=== PATIENT | female | born 2000 | race Caucasian/White ===

== ENCOUNTER 2019-05-23 13:55 | Emergency (ER) | payer OTHER ==
[~2019-05-23] VITALS: Ht 157.5 cm; Wt 118.8 kg
[2019-05-23 14:15] LABS: Source, Urine Clean Catch
[2019-05-23 14:33] LABS: Appearance, Urine Hazy (Clear); Bilirubin, Urine Neg (Neg); Blood, Urine 1+ (Neg); Color, Urine Yellow (P-Yellow); Glucose Qualitative, Urine Neg (Neg); Ketones, Urine 1+ (Neg); Leukocyte Esterase, Urine 1+ (Neg); Nitrite, Urine Neg (Neg); Protein, Urine 2+ (Neg); Specific Gravity, Urine 1.025 (1.003-1.022); Urobilinogen, Urine 1+ (Normal)
[2019-05-23 14:56] LABS: Red Blood Cells, Urine Not Seen /hpf (0-2); White Blood Cells, Urine 0-2 /hpf (0-5)
[2019-05-23 14:57] LABS: Bacteria Many /hpf; Squamous Epithelial Cells Many /hpf (Few)
[2019-05-23] MEDS ORDERED: Macrobid 100 M100 MG PO (15:09)
== END 2019-05-23 15:14 | disposition home or self-care (01) ==
LOC: ER 13:55
PROVIDERS: Physician Assistant
DX: O23.41 Unspecified infection of urinary tract in pregnancy, first trimester (principal); Z3A.01 Less than 8 weeks gestation of pregnancy
CPT/HCPCS: 81001; 87086; 99283

== ENCOUNTER → 2019-07-13 | Outpatient (CLI) | payer OTHER ==
[~2019-07-13] MED LIST: Macrobid 100 M100 MG PO; PRENATAL TABLE1 EAC2 PO
== END ==
LOC: LAB SHORT 14:23 → LAB UCHC 14:23
DX: O99.89 Other specified diseases and conditions complicating pregnancy, childbirth and the puerperium (principal); R87.89 Other abnormal findings in specimens from female genital organs
CPT/HCPCS: 87070; 87205

== ENCOUNTER → 2019-10-28 | Outpatient (CLI) | payer OTHER ==
[2019-10-28 19:03] LABS: Alanine Aminotransfer (ALT/SGP 19 U/L (12-78); Albumin, Blood 3.1 g/dL (3.4-5.0); Albumin/Globulin Ratio 0.8 (0.8-1.8); Alk Phos 84 U/L (50-136); Aspartate Aminotrans (AST/SGOT 16 U/L (12-37); Bilirubin, Direct <0.1 mg/dL (0.0-0.3); Bilirubin, Indirect Unable to Calculate mg/dL (0.1-0.7); Bilirubin, Total 0.4 mg/dL (0.1-1.0); Globulin, Blood 4.1 g/dL (2.2-4.0); Total Protein, Blood 7.2 g/dL (6.4-8.2)
== END ==
LOC: LAB 16:12 → LAB SHORT 16:12 → EDSTATUS 10-27 12:00 → LAB FUT 10-27 12:00
PROVIDERS: Registered Nurse Community Health
DX: Z34.83 Encounter for supervision of other normal pregnancy, third trimester (principal)
CPT/HCPCS: 80076; 82731

== ENCOUNTER → 2019-12-15 | Outpatient (CLI) | payer OTHER | LOC: LAB SHORT 08:40 → LAB 08:40 | DX: Z34.83 Encounter for supervision of other normal pregnancy, third trimester (principal) | CPT/HCPCS: 87081; 87653 ==

== ENCOUNTER 2020-01-12 11:03 | Inpatient (IN) | payer OTHER ==
[~2020-01-12] VITALS: Ht 157.5 cm; Wt 114.3 kg
[2020-01-12 12:56] LABS: BASOPHILS ABSOLUTE AUTO 0.02 K/mm3 (0.00-0.23); BASOPHILS PERCENT AUTO 0 % (0-2); EOSINOPHILS ABSOLUTE AUTO 0.04 K/mm3 (0.00-0.68); EOSINOPHILS PERCENT AUTO 0 % (0-6); Hematocrit 34.4 % (33.0-51.0); Hemoglobin 11.4 g/dL (11.5-16.0); IMMATURE GRAN ABSOLUTE AUTO 0.06 K/mm3 (0.00-0.10); IMMATURE GRAN PERCENT AUTO 1 % (0-1); LYMPHOCYTES ABSOLUTE AUTO 2.36 K/mm3 (0.84-5.20); LYMPHOCYTES PERCENT AUTO 24 % (21-46); MONOCYTES PERCENT AUTO 7 % (4-13); Mean Corpuscular HGB 28.2 pg (26.0-34.0); Mean Corpuscular HGB Conc 33.1 g/dL (31.5-36.5); Mean Corpuscular Volume 85 fL (80-100); Mean Platelet Volume 11.8 fL (9.1-12.4); NEUTROPHILS ABSOLUTE AUTO 6.56 K/mm3 (1.96-9.15); NEUTROPHILS PERCENT AUTO 67 % (41-73); Platelet Count 235 K/mm3 (150-400); RDW Coefficient Variation 13.7 % (11.7-14.2); RDW Standard Deviation 42.5 fL (35.1-46.3); Red Blood Cell Count 4.04 M/mm3 (3.80-5.20); White Blood Cell Count 9.74 K/mm3 (4.00-11.30)
[2020-01-12] MEDS ORDERED: PANT40 PO (13:06)
--- NOTE | 2020-01-13 05:06 | NUR ---
RT STOOD BY FOR DELIVERY. BABY WAS DELIVERED TO [facility]HER [facility]ST. RT EXCUSED AFTER BABY HAD STRONG CRY. RN TO CALL IF RT NEEDED.
--- NOTE | 2020-01-13 08:21 | NUR ---
REPORT FROM GEORGE Flores RN, [facility] REQUESTED EPIDURAL CATHETER TO REMAIN IN PLACE FOR 12 HOURS POST DELIVERY. EPIDRUAL REINFORCED PRIOR TO ALLOWING THE PATIENT UP TO SHOWER, HOWEVER PATIENT TUGGED ON EPIDURAL DURING SHOWER AND DISLODGED THE CATHETER. EDUCATED THE PATIENT ON THE SIGNS OF A SPINAL HEADACHE AND WILL CONTINUE TO MONITOR
--- NOTE | 2020-01-13 15:09 | NUR ---
RN ROUNDED TO HELP W/ . PT REPORTS HAS BEEN GOING WELL. INSTRUCTED ON CORRECT POSITIONING AND NIPPLE SHAPE AFTER FEEDS. INSTRUCT/REVIEWED BOOKLET AND BROCHURE ON WHAT TO EXPECT DURING THE FIRST WEEK W/ AND FEEDING PATTER CHANGES IN NB. PT AND SO VERBALIZED UNDERSTANDING AND DENIES ANY FURTHER QUESTIONS OR CONCERNS.
--- NOTE | 2020-01-13 17:08 | NUR ---
DISCHARGE TEACHING TEACHING COMPLETED WITH BOTH PATIENT AND SIGNIFICANT OTHER, BOTH VERBALIZE UNDERSTANDING AND HAVE NO FURTHER QUESTIONS OR CONCERNS AT THIS TIME
[2020-01-14 05:39] LABS: BASOPHILS ABSOLUTE AUTO 0.02 K/mm3 (0.00-0.23); BASOPHILS PERCENT AUTO 0 % (0-2); EOSINOPHILS ABSOLUTE AUTO 0.09 K/mm3 (0.00-0.68); EOSINOPHILS PERCENT AUTO 1 % (0-6); Hematocrit 29.5 % (33.0-51.0); Hemoglobin 9.6 g/dL (11.5-16.0); IMMATURE GRAN ABSOLUTE AUTO 0.11 K/mm3 (0.00-0.10); IMMATURE GRAN PERCENT AUTO 1 % (0-1); LYMPHOCYTES ABSOLUTE AUTO 3.93 K/mm3 (0.84-5.20); LYMPHOCYTES PERCENT AUTO 26 % (21-46); MONOCYTES ABSOLUTE AUTO 1.06 K/mm3 (0.16-1.47); MONOCYTES PERCENT AUTO 7 % (4-13); Mean Corpuscular HGB 27.8 pg (26.0-34.0); Mean Corpuscular HGB Conc 32.5 g/dL (31.5-36.5); Mean Corpuscular Volume 86 fL (80-100); Mean Platelet Volume 11.3 fL (9.1-12.4); NEUTROPHILS ABSOLUTE AUTO 10.07 K/mm3 (1.96-9.15); NEUTROPHILS PERCENT AUTO 66 % (41-73); Platelet Count 221 K/mm3 (150-400); RDW Coefficient Variation 14.3 % (11.7-14.2); Red Blood Cell Count 3.45 M/mm3 (3.80-5.20); White Blood Cell Count 15.28 K/mm3 (4.00-11.30)
[2020-01-14] MEDS ORDERED: IBUP800 PO (08:40)
--- NOTE | 2020-01-14 09:01 | NUR ---
PERSCRIPTION CALLED INTO [facility] AT [id number]
--- NOTE | 2020-01-14 10:01 | NUR ---
PATIENT DISCHARGED TO HOME AT [id number]
== END 2020-01-14 09:44 | disposition home or self-care (01) | DRG 807 ==
LOC: BC 11:03 → OBS 11:03 → BC 12:26
PROVIDERS: ADMIT Registered Nurse Community Health
PROC: 10E0XZZ Delivery of Products of Conception, External Approach (ICD-10-PCS; principal; 2020-01-13)
PROC: 0HQ9XZZ Repair Perineum Skin, External Approach (ICD-10-PCS; 2020-01-13)
PROC: 00HU33Z Insertion of Infusion Device into Spinal Canal, Percutaneous Approach (ICD-10-PCS; 2020-01-13)
PROC: 3E0R3BZ Introduction of Anesthetic Agent into Spinal Canal, Percutaneous Approach (ICD-10-PCS; 2020-01-13)
DX: O69.81X0 Labor and delivery complicated by cord around neck, without compression, not applicable or unspecified (principal); Z37.0 Single live birth; O76 Abnormality in fetal heart rate and rhythm complicating labor and delivery; O70.0 First degree perineal laceration during delivery; Z3A.40 40 weeks gestation of pregnancy
CPT/HCPCS: 36415; 51702; 59025; 85025; 86850; 86900; 86901; 87210; J1885; J2001; J2590; J3010; J7120

== ENCOUNTER 2020-01-17 03:50 | Emergency (ER) | payer OTHER ==
[~2020-01-17] VITALS: Ht 157.5 cm; Wt 113.4 kg
[~2020-01-17 03:50] MED LIST changes: +IBUP800 PO; +PANT40 PO
[2020-01-17 05:07] LABS: BASOPHILS ABSOLUTE AUTO 0.03 K/mm3 (0.00-0.23); BASOPHILS PERCENT AUTO 0 % (0-2); EOSINOPHILS ABSOLUTE AUTO 0.18 K/mm3 (0.00-0.68); EOSINOPHILS PERCENT AUTO 2 % (0-6); Hematocrit 32.6 % (33.0-51.0); Hemoglobin 10.6 g/dL (11.5-16.0); IMMATURE GRAN PERCENT AUTO 1 % (0-1); LYMPHOCYTES ABSOLUTE AUTO 2.25 K/mm3 (0.84-5.20); LYMPHOCYTES PERCENT AUTO 20 % (21-46); MONOCYTES ABSOLUTE AUTO 0.68 K/mm3 (0.16-1.47); MONOCYTES PERCENT AUTO 6 % (4-13); Mean Corpuscular HGB Conc 32.5 g/dL (31.5-36.5); Mean Corpuscular Volume 86 fL (80-100); NEUTROPHILS ABSOLUTE AUTO 8.08 K/mm3 (1.96-9.15); NEUTROPHILS PERCENT AUTO 71 % (41-73); RDW Coefficient Variation 14.3 % (11.7-14.2); RDW Standard Deviation 44.9 fL (35.1-46.3); Red Blood Cell Count 3.78 M/mm3 (3.80-5.20); White Blood Cell Count 11.32 K/mm3 (4.00-11.30)
[2020-01-17 05:11] LABS: Mean Platelet Volume 10.9 fL (9.1-12.4); Platelet Count 294 K/mm3 (150-400)
[2020-01-17 05:23] LABS: Alanine Aminotransfer (ALT/SGP 40 U/L (12-78); Albumin, Blood 2.6 g/dL (3.4-5.0); Albumin/Globulin Ratio 0.7 (0.8-1.8); Alk Phos 119 U/L (50-136); Anion Gap 6 mmol/L (6-16); Aspartate Aminotrans (AST/SGOT 31 U/L (12-37); Bilirubin, Total 0.4 mg/dL (0.1-1.0); Blood Urea Nitrogen 7 mg/dL (8-24); Bun/Creatinine Ratio 12.4 (12.0-20.0); CO2, Blood 23 mmol/L (21-32); Calcium, Blood 7.9 mg/dL (8.5-10.1); Chloride, Blood 112 mmol/L (98-108); Creatinine, Blood 0.56 mg/dL (0.40-1.00); Globulin, Blood 3.7 g/dL (2.2-4.0); Glomerular Filtration Rate >60 (60-); Glucose, Blood 79 mg/dL (70-99); Potassium, Blood 3.3 mmol/L (3.5-5.5); Sodium, Blood 141 mmol/L (136-145); Total Protein, Blood 6.3 g/dL (6.4-8.2)
[2020-01-17 05:28] LABS: Source, Urine Clean Catch
[2020-01-17 05:51] LABS: Leukocyte Esterase, Urine 2+ (Neg)
[2020-01-17 05:52] LABS: Appearance, Urine Hazy (Clear); Bilirubin, Urine Neg (Neg); Blood, Urine 5+ (Neg); Color, Urine Red (P-Yellow); Glucose Qualitative, Urine Neg (Neg); Ketones, Urine 1+ (Neg); Nitrite, Urine Neg (Neg); Protein, Urine 1+ (Neg); Urobilinogen, Urine NORM (Normal)
[2020-01-17 05:55] LABS: Bacteria Many /hpf; Red Blood Cells, Urine TNTC /hpf (0-2); Squamous Epithelial Cells Many /hpf (Few); White Blood Cells, Urine 25-50 /hpf (0-5)
[2020-01-17 05:57] LABS: Transitional Epithelial Cells Few /hpf (0-Rare)
== END 2020-01-17 08:10 | disposition home or self-care (01) ==
LOC: ER 03:50
PROVIDERS: Emergency Medicine
DX: O90.89 Other complications of the puerperium, not elsewhere classified (principal); R51 Headache
CPT/HCPCS: 36415; 62273; 80053; 81001; 83735; 85025; 87086; 96365-59; 96366-59; 96375-59; 99284-25; J0706; J1200; J2765; J7030; J7070

== ENCOUNTER 2021-01-12 15:00 | Emergency (ER) | payer OTHER ==
[~2021-01-12] VITALS: Ht 157.5 cm; Wt 123.4 kg
[2021-01-12] MEDS ORDERED: SPACE CHAMBER1 EACH XX (16:46)
[2021-01-12] MEDS ORDERED: PROAIR RESPICL90 MCG INH (16:46)
== END 2021-01-12 17:10 | disposition home or self-care (01) ==
LOC: ER 15:00
DX: J30.2 Other seasonal allergic rhinitis (principal); R06.02 Shortness of breath; E78.5 Hyperlipidemia, unspecified
CPT/HCPCS: 99282

== ENCOUNTER → 2021-10-31 | Outpatient (CLI) | payer OTHER ==
[~2021-10-31] MED LIST changes: +PROAIR RESPICL90 MCG INH; +SPACE CHAMBER1 EACH XX
[2021-10-31 20:11] LABS: CHOL/HDL RATIO 3.6; Cholesterol 197 mg/dL (50-200); HDL Cholesterol 55 mg/dL (>39); LDL/HDL RATIO 2.2; Low Density Lipoprotein Chol 121 mg/dL (0-110); Triglycerides 107 mg/dL (30-140); Very Low Density Lipoprot Chol 21 mg/dL (6-28)
[2021-11-01 11:11] LABS: Candida species (DNA Probe) Negative (NEGATIVE); G. vaginalis (DNA Probe) Negative (NEGATIVE); T. vaginalis (DNA Probe) Negative (NEGATIVE)
== END ==
LOC: LAB SHORT 11:00
PROVIDERS: Registered Nurse Community Health
DX: Z13.6 Encounter for screening for cardiovascular disorders (principal); N89.8 Other specified noninflammatory disorders of vagina; R53.83 Other fatigue
CPT/HCPCS: 36415; 80061; 82306; 83036; 87480; 87510; 87660

== ENCOUNTER 2022-07-02 00:53 | Emergency (ER) | payer OTHER ==
[~2022-07-02] VITALS: Ht 165.1 cm; Wt 108.9 kg
[2022-07-02] MEDS ORDERED: BUPROPION XL150 M1 PO (01:24)
[2022-07-02] MEDS ORDERED: TOPI50 PO (01:27)
[2022-07-02] MEDS ORDERED: ESCI10 PO (01:27)
[2022-07-02] MEDS ORDERED: Adipex-P37.5 MG PO (01:28)
== END 2022-07-02 02:50 | disposition home or self-care (01) ==
LOC: ER 00:53
DX: F43.9 Reaction to severe stress, unspecified (principal); Z79.899 Other long term (current) drug therapy
CPT/HCPCS: 99284

== ENCOUNTER → 2022-07-24 | Outpatient (CLI) | payer OTHER ==
[~2022-07-24] MED LIST changes: +Adipex-P37.5 MG PO; +BUPROPION XL150 M1 PO; +ESCI10 PO; +TOPI50 PO
[2022-07-24 13:53] LABS: Candida species (DNA Probe) Negative (NEGATIVE); G. vaginalis (DNA Probe) Negative (NEGATIVE); T. vaginalis (DNA Probe) Negative (NEGATIVE)
[2022-07-26 16:10] LABS: CHLAMYDIA BY NAA Negative (Negative); GONOCOCCUS BY NAA Negative (Negative); TRICH VAG BY NAA Negative (Negative)
== END | disposition home or self-care (01) ==
LOC: LAB SHORT 10:40 → LAB 10:40
PROVIDERS: Registered Nurse Community Health
DX: N89.8 Other specified noninflammatory disorders of vagina (principal); R30.0 Dysuria
CPT/HCPCS: 87077; 87086; 87186; 87480; 87491; 87510; 87591; 87660; 87661

== ENCOUNTER 2022-08-31 15:29 | Emergency (ER) | payer OTHER ==
[~2022-08-31] VITALS: Ht 157.5 cm; Wt 117.9 kg
[2022-08-31] MEDS ORDERED: CEPH500 PO (18:25)
== END 2022-08-31 18:28 | disposition home or self-care (01) ==
LOC: ER 15:29
DX: S70.311A Abrasion, right thigh, initial encounter (principal); W17.89XA Other fall from one level to another, initial encounter; Z77.21 Contact with and (suspected) exposure to potentially hazardous body fluids; Z79.899 Other long term (current) drug therapy
CPT/HCPCS: 99282

== ENCOUNTER → 2024-11-11 | Outpatient (CLI) | payer BC ==
[~2024-11-11] MED LIST changes: +CEPH500 PO; +ONDA4 PO
[2024-11-11 09:59] LABS: CHOL/HDL RATIO 3.4; Cholesterol 206 mg/dL (50-200); HDL Cholesterol 60 mg/dL (>39); LDL/HDL RATIO 2.2; Low Density Lipoprotein Chol 134 mg/dL (0-110); Triglycerides 60 mg/dL (30-140); Very Low Density Lipoprot Chol 12 mg/dL (6-28)
== END ==
LOC: LAB SHORT 09:00 → LAB 09:00
PROVIDERS: Registered Nurse Community Health
DX: E66.01 Morbid (severe) obesity due to excess calories (principal)
CPT/HCPCS: 80061; 84443